=== PATIENT | female | born 1975 | race African-American/Black ===

== ENCOUNTER 2017-06-15 08:59 | Inpatient (IN) | payer OTHER ==
[2017-06-15 09:38] VITALS: BMI 30.7
--- NOTE | 2017-06-15 10:50 | HP ---
CIWA Score - CIWA Score Nausea/Vomitin Muscle Tremors: 3 Anxiety: 3 Agitation: 3 Paroxysmal Sweats: 3 Orientation: 0-Oriented Tacttile Disturbances: 1-Very Mild Itch/Numbness Auditory Disturbances: 0-None Visual Disturbances: 0-None Headache: 2-Mild CIWA-Ar Total Score: 18 Admission [facility] Chief Complaint: alcohol withdrawal sx Allergies/Adverse Reactions: Allergies Allergy/AdvReac Type Severity Reaction Status Date / Time escitalopram oxalate Allergy Mild Swelling Verified 06/15/17 10:25 [From Lexapro] veal Allergy Mild Nausea Uncoded 06/15/17 10:25 History of Present Illness: 41 yo f with h/o chronic alcoholism with alcoholwithdrawl sx requesting inpatient detoxification, crack cocaine, nicotine and mairjuana dependence, occasional opioid percocet use for pain. PMHX obiesity, sciatica, no h/o siezures, no DTS, no SI at this time. Exam Limitations: No Limitations - Ebola screening Have you traveled outside of the country in the last 21 days: No (N) Have you had contact with anyone from an Ebola affected area: No Have you been sick,other than usual withdrawal symptoms: No Do you have a fever: No - Review of Systems Constitutional: Chills, Diaphoresis, Night Sweats, Changes in sleep, Unintentional Wgt. Loss EENT: reports: No Symptoms Reported Respiratory: reports: No Symptoms reported Cardiac: reports: No Symptoms Reported GI: reports: Diarrhea, Nausea, Poor Appetite, Poor Fluid Intake, Vomiting, Indigestion, Abdominal cramping : reports: No Symptoms Reported Musculoskeletal: reports: Joint Pain (bialteral knee pain) Integumentary: reports: Flushing, Sweating Neuro: reports: Headache, Numbness, Tingling, Tremors Endocrine: reports: Increased Thirst Hematology: reports: No Symptoms Reported Psychiatric: reports: Judgement Intact, Mood/Affect Appropiate, Orientated x3, Anxious, Depressed Other Systems: Reviewed and Negative Patient History - Patient Medical History Hx Anemia: No Hx Asthma: No Hx Chronic Obstructive Pulmonary Disease (COPD): No Hx Cancer: No Hx Cardiac Disorders: No Hx Congestive Heart Failure: No Hx Hypertension: No Hx Hypercholesterolemia: No Hx Pacemaker: No HX Cerebrovascular Accident: No Hx Seizures: No Hx Dementia: No Hx Diabetes: No Hx Gastrointestinal Disorders: No Hx Liver Disease: No Hx Genitourinary Disorders: No Hx Sexually Transmitted Disorders: No Hx Renal Disease (ESRD): No Hx Thyroid Disease: No Hx Human Immunodeficiency Virus (HIV): No (NEGATIVE IN 12/2011) Hx Hepatitis C: No Hx Depression: No Hx Suicide Attempt: No Hx Bipolar Disorder: Yes Hx Schizophrenia: Yes - Patient Surgical History Past Surgical History: Yes Hx Neurologic Surgery: No Hx Cataract Extraction: No Hx Cardiac Surgery: No Hx Lung Surgery: No Hx Breast Surgery: No Hx Breast Biopsy: No Hx Abdominal Surgery: No Hx Appendectomy: No Hx Cholecystectomy: No Hx Genitourinary Surgery: No Hx Section: No Hx Orthopedic Surgery: Yes (Lt lower Jaw 2009) Hx Hysterectomy: No Anesthesia Reaction: No - PPD History Previous Implant?: No Implanted On Prior [facility] Admission?: No PPD to be Administered?: Yes - Reproductive History Patient is a Female of Child Bearing Age (11 -55 yrs old): Yes Last Menstrual Period: 12/12/14 Patient : No - Smoking Cessation Smoking history: Current every day smoker Have you smoked in the past 12 months: Yes Aproximately how many cigarettes per day: 30 Hx Chewing Tobacco Use: No Initiated information on smoking cessation: Yes 'Breaking Loose' booklet given: 06/15/17 - Substance & Tx. History Hx Alcohol Use: Yes Hx Substance Use: Yes Substance Use Type: Alcohol, Cocaine, Marijuana, Opiates, Prescribed Hx Substance Use Treatment: Yes (st. [facility]) - Substances Abused Alcohol Route: Oral Frequency: Daily Amount used: 1/2 PINT VODKA , 6PACK BEER Age of first use: 15 Date of Last Use: 06/14/17 Cocaine Route: Inhalation Frequency: No use in 30 days Amount used: $700/MONTH Age of first use: 18 Date of Last Use: 03/15/17 Marijuana/Hashish Route: Smoking Frequency: 1-2 times per week Amount used: 1BAG Age of first use: 16 Date of Last Use: 06/14/17 Family Disease History - Family Disease History Family Disease History: CA: Father (LUNG), Other: Mother (KIDNEY FAILURE) Admission Physical Exam [facility] - Vital Signs Vital Signs: Vital Signs - 24 hr 06/15/17 09:32 Temperature 97.2 F L Pulse Rate 78 Respiratory 18 Rate Blood Pressure 154/97 - Physical General Appearance: Yes: Nourished, Appropriately Dressed, Disheveled, Mild Distress, Alcohol on Breath, Obese, Tremorous, Irritable, Sweating, Anxious HEENTM: Yes: Within Normal Limits, EOMI, Hearing grossly Normal, Normal ENT Inspection, Normocephalic, Normal Voice, BROCK, Pharynx Normal Respiratory: Yes: Within Normal Limits, Chest Non-Tender, Lungs Clear, Normal Breath Sounds, No Respiratory Distress, No Accessory Muscle Use Neck: Yes: Within Normal Limits, No masses,lesions,Nodules, Supple, Trachea in good position Breast: Yes: Breast Exam Deferred Cardiology: Yes: Within Normal Limits, Regular Rhythm, Regular Rate, S1, S2 Abdominal: Yes: Normal Bowel Sounds, Non Tender, Soft, Increased Bowel Sounds, Protuberent, Distended, Tenderness (diffuse no rebound or guarding noted) Genitourinary: Yes: Within Normal Limits Back: Yes: Within Normal Limits, Normal Inspection Musculoskeletal: Yes: full range of Motion, Gait Steady, Pelvis Stable, Joint Stiffness (knees) Extremities: Yes: Normal Capillary Refill, Normal Range of Motion, Non-Tender, Tremors Neurological: Yes: 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 II-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 NML intact, Fully Oriented, Alert, Motor Strength 5/5, Normal Response, Depressed Affect Integumentary: Yes: Normal Color, Warm, Diaphoresis, Moist Lymphatic: Yes: Within Normal Limits - Addiitonal Findings: withdrawal sx present - Diagnostic (1) Alcohol dependence with uncomplicated withdrawal Current Visit: Yes Status: Acute (2) Dehydration Current Visit: Yes Status: Acute (3) Obesity Current Visit: Yes Status: Acute (4) Nicotine dependence Current Visit: Yes Status: Acute (5) Bipolar 1 disorder, mixed, moderate Current Visit: No Status: Chronic (6) Cocaine dependence Current Visit: No Status: Chronic (7) 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
[2017-06-15] MEDS ORDERED: NICOTINE POLACRILEX 4 MG GUM BUC PRN (10:56)
[2017-06-15] MEDS ORDERED: MENTHOL/PHENOL 1 EACH UD MM PRN (10:56)
[2017-06-15] MEDS ORDERED: MAG HYDROX/AL HYDROX/SIMETH 30 ML UNIT-DOSE CUP PO PRN (10:56)
[2017-06-15] MEDS ORDERED: MAGNESIUM HYDROX 2400MG/30ML ORAL SUSPENSION 30 ML CUP PO PRN (10:56)
[2017-06-15] MEDS ORDERED: MAGNESIUM CITRATE 300 ML BOTTLE PO PRN (10:56)
[2017-06-15] MEDS ORDERED: LOPERAMIDE HCL 2 MG CAPSULE PO PRN (10:56)
[2017-06-15] MEDS ORDERED: ACETAMINOPHEN 325 MG TABLET (FP) PO PRN (10:56)
[2017-06-15] MEDS ORDERED: guaiFENesin/D-METHORPHAN HB 10 ML UNIT-DOSE CUPS PO PRN (10:56)
[2017-06-15] MEDS ORDERED: P-EPHED 60MG/TRIPROLIDI 2.5MG TABLET PO PRN (10:56)
[2017-06-15] MEDS ORDERED: hydrOXYzine PAMOATE 50 MG CAPSULE (FP) PO PRN (10:56)
[2017-06-15] MEDS ORDERED: chlordiazePOXIDE HCL 25 MG CAPSULE PO PRN (10:56)
[2017-06-15] MEDS ORDERED: chlordiazePOXIDE HCL 25 MG CAPSULE PO ONE (11:15)
[2017-06-15] MEDS ORDERED: FLU VACCINE QUAD 60 MCG/0.5 ML (MDV 17-18) IM ONE (12:00)
[2017-06-15] MEDS: IBUPROFEN 400 MG TABLET (FP) PO PRN ×2 (12:53→19:03)
[2017-06-15] MEDS: NICOTINE 21 MG/24 HOURS TOPICAL PATCH TD SCH (12:55)
[2017-06-15] MEDS: LIDOCAINE 5% TOPICAL PATCH TP SCH (12:57)
[2017-06-15] MEDS ORDERED: ONDANSETRON *ODT* 4 MG TABLET SL PRN (13:40)
--- NOTE | 2017-06-15 15:30 | CONSULT ---
[facility] Psychiatric Consult - Data Date of interview: 06/15/17 Admission source: [facility] Identifying data: This is 41 years old AA female , mother of five, [facility] withhistory of Schizophrenia, Bipolar I Disorder, history of psychiatric hospitalizations, intoxicated with: Alcohol, Cannabis, Cocaine and Nicotine Substance Abuse History: - Smoking Cessation. Smoking history: Current every day smoker. Have you smoked in the past 12 months: Yes. Aproximately how many cigarettes per day: 30. Hx Chewing Tobacco Use: No. Initiated information on smoking cessation: Yes. 'Breaking Loose' booklet given: 06/15/17. - Substance & Tx. History. Hx Alcohol Use: Yes. Hx Substance Use: Yes. Substance Use Type : Alcohol, Cocaine, Marijuana, Opiates, Prescribed. Hx Substance Use Treatment : Yes (st[facility]). - Substances Abused. Alcohol. Route: Oral. Frequency: Daily. Amount used: 1/2 PINT VODKA , 6PACK BEER. Age of first use: 15. Date of Last Use: 06/14/17. Cocaine. Route: Inhalation. Frequency: No use in 30 days. Amount used: $700/MONTH. Age of first use: 18. Date of Last Use: 05/31. Marijuana/Hashish. Route: Smoking. Frequency: 1-2 times per week. Amount used: 1BAG. Age of first use: 16. Date of Last Use: 06/14/17 Medical History: Obesity Psychiatric History: Patient reports to carry Bipolar I Disorder, wity history of multiple psychiatric admissions , most recent one on 2015 at [facility] due to auditory hgallucinations. Patient reports taking prior to admission: Haldol 10mg po bid. Depakote 500mg po bid. Cogentin 0,5mg p[o bid. Effexor XR 150mg poqd. Trazodone 199mg po qhs Physical/Sexual Abuse/Trauma History: Unclear Additional Comment: Haldol 10mg po bid. Depakote 500mg po bid. Cogentin 0,5mg p[o bid. Effexor XR 150mg poqd. Trazodone 199mg po qhs Mental Status Exam - Mental Status Exam Alert and Oriented to: Person Cognitive Function: Fair Patient Appearance: Unkempt Mood: Suspicious Affect: Constricted Patient Behavior: Guarded Speech Pattern: Appropriate Voice Loudness: Normal Thought Process: Circumstantial Thought Disorder: Being Controlled Hallucinations: Denies Suicidal Ideation: Denies Homicidal Ideation: Denies Insight/Judgement: Fair Sleep: Difficulty falling asleep Appetite: Weight gain Muscle strength/Tone: Mild Hypotonicity Gait/Station: Shuffling Additional Comments: Haldol 10mg po bid. Depakote 500mg po bid. Cogentin 0, 5mg p[o bid. Effexor XR 150mg poqd. Trazodone 199mg po qhs Psychiatric Findings - Problem List ([place] 1, 2,3) (1) Alcohol dependence with uncomplicated withdrawal Current Visit: Yes Status: Acute (2) Nicotine dependence Current Visit: Yes Status: Acute (3) Alcohol dependence Current Visit: No Status: Chronic (4) Bipolar 1 disorder, mixed, moderate Current Visit: No Status: Chronic (5) Cocaine dependence Current Visit: No Status: Chronic - Initial Treatment Plan Initial Treatment Plan: Haldol 10mg po bid. Depakote 500mg po bid. Cogentin 0, 5mg p[o bid. Effexor XR 150mg poqd. Trazodone 199mg po qhs
[2017-06-15] MEDS: chlordiazePOXIDE HCL 25 MG CAPSULE PO SCH ×2 (17:12→22:43)
[2017-06-15 18:16] LABS: URINE APPEARANCE CLEAR; URINE BILIRUBIN NEGATIVE (NEGATIVE); URINE BLOOD NEGATIVE (NEGATIVE); URINE COLOR YELLOW; URINE GLUCOSE (UA) NEGATIVE (NEGATIVE); URINE KETONE NEGATIVE (NEGATIVE); URINE LEUK ESTERASE NEGATIVE (NEGATIVE); URINE NITRITE NEGATIVE (NEGATIVE); URINE PROTEIN NEGATIVE (NEGATIVE); URINE UROBILINOGEN NEGATIVE mg/dL (0.2-1.0)
[2017-06-15] MEDS ORDERED: cloNIDine HCL 0.1 MG TABLET PO ONE (22:32)
--- NOTE | 2017-06-15 22:35 | PN ---
[facility] Progress Note Note: Last Vital Signs Temp Pulse Resp BP Pulse Ox 98.6 F 86 18 160/103 06/15/17 21:58 06/15/17 21:58 06/15/17 21:58 06/15/17 21:58 patient no apparent distress. STAT order Clonidine 0.1mg Once Increase Fluids Continue to monitor Continue detox
[2017-06-15] MEDS: DIVALPROEX SODIUM 500 MG TABLET E.C. PO SCH (22:42)
[2017-06-15] MEDS: HALOPERIDOL 5 MG TABLET (FP) PO SCH (22:42)
[2017-06-15] MEDS: BENZTROPINE MESYLATE 1 MG TABLET (FP) PO SCH (22:43)
[2017-06-15] MEDS: THIAMINE HCL 100 MG TABLET (FP) PO SCH (22:43)
[2017-06-15] MEDS: traZODone HCL 100 MG TABLET (FP) PO SCH (22:43)
[2017-06-15] MEDS: LIDOCAINE PATCH REMOVAL MC SCH (23:01)
[2017-06-16] MEDS: chlordiazePOXIDE HCL 25 MG CAPSULE PO SCH ×4 (07:50→22:29)
[2017-06-16 10:02] LABS: HEMOGLOBIN 12.1 GM/dL (10.7-15.3); MCH 30.2 pg (25.7-33.7); MCHC 31.9 g/dl (32.0-36.0); MEAN CELL VOLUME 94.4 fl (80-96); MEAN PLT VOLUME 8.3 fl (7.5-11.1); PLATELET COUNT 259 K/MM3 (134-434); RBC 4.03 M/mm3 (3.60-5.2); RDW 14.3 % (11.6-15.6); WHITE BLOOD COUNT 6.7 K/mm3 (4.0-10.0)
[2017-06-16 10:17] LABS: CHLORIDE 105 mmol/L (98-107); SODIUM 140 mmol/L (136-145)
--- NOTE | 2017-06-16 10:18 | EKG ---
Test Reason : Blood Pressure : / mmHG Vent. Rate : 089 BPM Atrial Rate : 089 BPM P-R Int : 194 ms QRS Dur : 080 ms QT Int : 376 ms P-R-T Axes : 059 049 054 degrees QTc Int : 457 ms NORMAL SINUS RHYTHM NORMAL ECG NO PREVIOUS ECGS AVAILABLE Confirmed by TONA GRAY MD ([id number]) on 06/16/2017 10:17:48 AM Referred By: Confirmed By:TONA GRAY MD
[2017-06-16 10:33] LABS: ALBUMIN 4.2 g/dl (3.4-5.0); ALK PHOS 77 U/L (45-117); ANION GAP 8 (8-16); BILIRUBIN,TOTAL 0.5 mg/dL (0.2-1.0); BLOOD UREA NITROGEN 12 mg/dL (7-18); CALCIUM 8.6 mg/dL (8.5-10.1); CO2 27 mmol/L (21-32); CREATININE 0.6 mg/dL (0.55-1.02); GLUCOSE,RANDOM 103 mg/dL (74-106); SGOT/AST 40 U/L (15-37); SGPT/ALT 46 U/L (12-78); TOT PROT 8.2 g/dl (6.4-8.2)
[2017-06-16] MEDS: DIVALPROEX SODIUM 500 MG TABLET E.C. PO SCH ×2 (10:51→22:28)
[2017-06-16] MEDS: VENLAFAXINE HCL 150 MG E.R. CAPSULE PO SCH (10:51)
[2017-06-16] MEDS: BENZTROPINE MESYLATE 1 MG TABLET (FP) PO SCH ×2 (10:52→22:28)
[2017-06-16] MEDS: NICOTINE 21 MG/24 HOURS TOPICAL PATCH TD SCH (10:52)
[2017-06-16] MEDS: LIDOCAINE 5% TOPICAL PATCH TP SCH (10:52)
[2017-06-16] MEDS: HALOPERIDOL 5 MG TABLET (FP) PO SCH ×2 (10:52→22:28)
[2017-06-16] MEDS: PRENATAL VITAMINS W/ FOLIC ACID TABLET (FP) PO SCH (10:53)
--- NOTE | 2017-06-16 14:12 | PN ---
S CIWA - CIWA Score Nausea/Vomitin Muscle Tremors: 3 Anxiety: 3 Agitation: 2 Paroxysmal Sweats: 1-Minimal Palms Moist Orientation: 0-Oriented Tacttile Disturbances: 1-Very Mild Itch/Numbness Auditory Disturbances: 1-Very Mild Visual Disturbances: 0-None Headache: 2-Mild CIWA-Ar Total Score: 16 BHS Progress Note (SOAP) Subjective: ALERT,IRRITABLE,ANXIOUS,INTERRUPTED SLEEP,TREMOR Objective: 06/16/17 14:11 Vital Signs Temperature 97.9 F 06/16/17 10:16 Pulse Rate 84 06/16/17 10:16 Respiratory Rate 18 06/16/17 10:16 Blood Pressure 148/94 06/16/17 10:16 O2 Sat by Pulse Oximetry (%) EKG NSR,NORMAL ECG Laboratory Last Values WBC 6.7 K/mm3 (4.0-10.0) 06/16/17 06:00 RBC 4.03 M/mm3 (3.60-5.2) 06/16/17 06:00 Hgb 12.1 GM/dL (10.7-15.3) 06/16/17 06:00 Hct 38.0 % (32.4-45.2) 06/16/17 06:00 MCV 94.4 fl (80-96) 06/16/17 06:00 MCH 30.2 pg (25.7-33.7) 06/16/17 06:00 MCHC 31.9 g/dl (32.0-36.0) L 06/16/17 06:00 RDW 14.3 % (11.6-15.6) 06/16/17 06:00 Plt Count 259 K/MM3 (134-434) 06/16/17 06:00 MPV 8.3 fl (7.5-11.1) 06/16/17 06:00 Sodium 140 mmol/L (136-145) 06/16/17 06:00 Potassium 4.0 mmol/L (3.5-5.1) 06/16/17 06:00 Chloride 105 mmol/L (98-107) 06/16/17 06:00 Carbon Dioxide 27 mmol/L (21-32) 06/16/17 06:00 Anion Gap 8 (8-16) 06/16/17 06:00 BUN 12 mg/dL (7-18) 06/16/17 06:00 Creatinine 0.6 mg/dL (0.55-1.02) 06/16/17 06:00 Creat Clearance w eGFR > 60 (>60) 06/16/17 06:00 Random Glucose 103 mg/dL (74-106) 06/16/17 06:00 Calcium 8.6 mg/dL (8.5-10.1) 06/16/17 06:00 Total Bilirubin 0.5 mg/dL (0.2-1.0) D 06/16/17 06:00 AST 40 U/L (15-37) H 06/16/17 06:00 ALT 46 U/L (12-78) 06/16/17 06:00 Alkaline Phosphatase 77 U/L (45-117) 06/16/17 06:00 Total Protein 8.2 g/dl (6.4-8.2) 06/16/17 06:00 Albumin 4.2 g/dl (3.4-5.0) 06/16/17 06:00 Urine Color Yellow 06/15/17 17:00 Urine Appearance Clear 06/15/17 17:00 Urine pH 8.0 (5.0-8.0) 06/15/17 17:00 Ur Specific [place] 1.025 (1.001-1.035) 06/15/17 17:00 Urine Protein Negative (NEGATIVE) 06/15/17 17:00 Urine Glucose (UA) Negative (NEGATIVE) 06/15/17 17:00 Urine Ketones Negative (NEGATIVE) 06/15/17 17:00 Urine Blood Negative (NEGATIVE) 06/15/17 17:00 Urine Nitrite Negative (NEGATIVE) 06/15/17 17:00 Urine Bilirubin Negative (NEGATIVE) 06/15/17 17:00 Urine Urobilinogen Negative mg/dL (0.2-1.0) 06/15/17 17:00 Ur Leukocyte Esterase Negative (NEGATIVE) 06/15/17 17:00 Valproic Acid 9.732 ug/ml (50-100) L 06/16/17 06:00 RPR Titer Nonreactive (NONREACTIVE) 06/16/17 06:00 HIV 1&2 Antibody Screen Negative 06/16/17 06:00 HIV P24 Antigen Negative 06/16/17 06:00 Assessment: 06/16/17 14:12 WITHDRAWAL SYMPTOM Plan: CONTINUE DETOX
[2017-06-16] MEDS ORDERED: cloNIDine HCL 0.1 MG TABLET PO ONE (15:23)
[2017-06-16] MEDS: THIAMINE HCL 100 MG TABLET (FP) PO SCH (22:28)
[2017-06-16] MEDS: traZODone HCL 100 MG TABLET (FP) PO SCH (22:28)
[2017-06-16] MEDS: LIDOCAINE PATCH REMOVAL MC SCH (23:52)
[2017-06-17] MEDS: chlordiazePOXIDE HCL 25 MG CAPSULE PO SCH ×2 (07:04→10:36)
[2017-06-17] MEDS: HALOPERIDOL 5 MG TABLET (FP) PO SCH ×2 (10:36→22:44)
[2017-06-17] MEDS: NICOTINE 21 MG/24 HOURS TOPICAL PATCH TD SCH (10:37)
[2017-06-17] MEDS: VENLAFAXINE HCL 150 MG E.R. CAPSULE PO SCH (10:37)
[2017-06-17] MEDS: PRENATAL VITAMINS W/ FOLIC ACID TABLET (FP) PO SCH (10:37)
[2017-06-17] MEDS: DIVALPROEX SODIUM 500 MG TABLET E.C. PO SCH ×2 (10:37→22:44)
[2017-06-17] MEDS: BENZTROPINE MESYLATE 1 MG TABLET (FP) PO SCH ×2 (10:38→22:44)
[2017-06-17] MEDS: LIDOCAINE 5% TOPICAL PATCH TP SCH (10:38)
--- NOTE | 2017-06-17 13:04 | PN ---
S CIWA - CIWA Score Nausea/Vomitin Muscle Tremors: 3 Anxiety: 2 Agitation: 2 Paroxysmal Sweats: 1-Minimal Palms Moist Orientation: 0-Oriented Tacttile Disturbances: 1-Very Mild Itch/Numbness Auditory Disturbances: 1-Very Mild Visual Disturbances: 1-Very Mild Sensitivity Headache: 2-Mild CIWA-Ar Total Score: 16 [facility] Progress Note (SOAP) Subjective: ALERT,IRRITABLE,ANXIOUS,INTERRUPTED SLEEP,TREMOR Objective: 06/17/17 13:02 Vital Signs Temperature 97.7 F 06/17/17 10:14 Pulse Rate 91 H 06/17/17 10:14 Respiratory Rate 18 06/17/17 10:14 Blood Pressure 156/99 06/17/17 10:14 O2 Sat by Pulse Oximetry (%) Laboratory Last Values WBC 6.7 K/mm3 (4.0-10.0) 06/16/17 06:00 RBC 4.03 M/mm3 (3.60-5.2) 06/16/17 06:00 Hgb 12.1 GM/dL (10.7-15.3) 06/16/17 06:00 Hct 38.0 % (32.4-45.2) 06/16/17 06:00 MCV 94.4 fl (80-96) 06/16/17 06:00 MCH 30.2 pg (25.7-33.7) 06/16/17 06:00 MCHC 31.9 g/dl (32.0-36.0) L 06/16/17 06:00 RDW 14.3 % (11.6-15.6) 06/16/17 06:00 Plt Count 259 K/MM3 (134-434) 06/16/17 06:00 MPV 8.3 fl (7.5-11.1) 06/16/17 06:00 Sodium 140 mmol/L (136-145) 06/16/17 06:00 Potassium 4.0 mmol/L (3.5-5.1) 06/16/17 06:00 Chloride 105 mmol/L (98-107) 06/16/17 06:00 Carbon Dioxide 27 mmol/L (21-32) 06/16/17 06:00 Anion Gap 8 (8-16) 06/16/17 06:00 BUN 12 mg/dL (7-18) 06/16/17 06:00 Creatinine 0.6 mg/dL (0.55-1.02) 06/16/17 06:00 Creat Clearance w eGFR > 60 (>60) 06/16/17 06:00 Random Glucose 103 mg/dL (74-106) 06/16/17 06:00 Calcium 8.6 mg/dL (8.5-10.1) 06/16/17 06:00 Total Bilirubin 0.5 mg/dL (0.2-1.0) D 06/16/17 06:00 AST 40 U/L (15-37) H 06/16/17 06:00 ALT 46 U/L (12-78) 06/16/17 06:00 Alkaline Phosphatase 77 U/L (45-117) 06/16/17 06:00 Total Protein 8.2 g/dl (6.4-8.2) 06/16/17 06:00 Albumin 4.2 g/dl (3.4-5.0) 06/16/17 06:00 Urine Color Yellow 06/15/17 17:00 Urine Appearance Clear 06/15/17 17:00 Urine pH 8.0 (5.0-8.0) 06/15/17 17:00 Ur Specific [place] 1.025 (1.001-1.035) 06/15/17 17:00 Urine Protein Negative (NEGATIVE) 06/15/17 17:00 Urine Glucose (UA) Negative (NEGATIVE) 06/15/17 17:00 Urine Ketones Negative (NEGATIVE) 06/15/17 17:00 Urine Blood Negative (NEGATIVE) 06/15/17 17:00 Urine Nitrite Negative (NEGATIVE) 06/15/17 17:00 Urine Bilirubin Negative (NEGATIVE) 06/15/17 17:00 Urine Urobilinogen Negative mg/dL (0.2-1.0) 06/15/17 17:00 Ur Leukocyte Esterase Negative (NEGATIVE) 06/15/17 17:00 Valproic Acid 9.732 ug/ml (50-100) L 06/16/17 06:00 RPR Titer Nonreactive (NONREACTIVE) 06/16/17 06:00 HIV 1&2 Antibody Screen Negative 06/16/17 06:00 HIV P24 Antigen Negative 06/16/17 06:00 Assessment: 06/17/17 13:03 WITHDRAWAL SYMPTOM Plan: CONTINUE DETOX
[2017-06-17] MEDS: chlordiazePOXIDE 5 MG CAPSULE PO SCH ×2 (17:29→22:44)
[2017-06-17] MEDS: traZODone HCL 100 MG TABLET (FP) PO SCH (22:43)
[2017-06-17] MEDS: THIAMINE HCL 100 MG TABLET (FP) PO SCH (22:43)
[2017-06-17] MEDS: LIDOCAINE PATCH REMOVAL MC SCH (23:06)
[2017-06-18] MEDS: chlordiazePOXIDE 5 MG CAPSULE PO SCH ×2 (07:00→10:36)
[2017-06-18] MEDS: VENLAFAXINE HCL 150 MG E.R. CAPSULE PO SCH (10:36)
[2017-06-18] MEDS: PRENATAL VITAMINS W/ FOLIC ACID TABLET (FP) PO SCH (10:36)
[2017-06-18] MEDS: DIVALPROEX SODIUM 500 MG TABLET E.C. PO SCH ×2 (10:36→22:34)
[2017-06-18] MEDS: HALOPERIDOL 5 MG TABLET (FP) PO SCH ×2 (10:36→23:00)
[2017-06-18] MEDS: BENZTROPINE MESYLATE 1 MG TABLET (FP) PO SCH ×2 (10:37→22:34)
[2017-06-18] MEDS: LIDOCAINE 5% TOPICAL PATCH TP SCH (10:37)
[2017-06-18] MEDS: NICOTINE 21 MG/24 HOURS TOPICAL PATCH TD SCH (10:37)
--- NOTE | 2017-06-18 11:12 | PN ---
S Progress Note (SOAP) Subjective: tremor sweat anxiety Objective: 06/18/17 11:12 Vital Signs Temperature 96.6 F L 06/18/17 10:18 Pulse Rate 90 06/18/17 10:18 Respiratory Rate 20 06/18/17 10:18 Blood Pressure 133/94 06/18/17 10:18 O2 Sat by Pulse Oximetry (%) Laboratory Last Values WBC 6.7 K/mm3 (4.0-10.0) 06/16/17 06:00 RBC 4.03 M/mm3 (3.60-5.2) 06/16/17 06:00 Hgb 12.1 GM/dL (10.7-15.3) 06/16/17 06:00 Hct 38.0 % (32.4-45.2) 06/16/17 06:00 MCV 94.4 fl (80-96) 06/16/17 06:00 MCH 30.2 pg (25.7-33.7) 06/16/17 06:00 MCHC 31.9 g/dl (32.0-36.0) L 06/16/17 06:00 RDW 14.3 % (11.6-15.6) 06/16/17 06:00 Plt Count 259 K/MM3 (134-434) 06/16/17 06:00 MPV 8.3 fl (7.5-11.1) 06/16/17 06:00 Sodium 140 mmol/L (136-145) 06/16/17 06:00 Potassium 4.0 mmol/L (3.5-5.1) 06/16/17 06:00 Chloride 105 mmol/L (98-107) 06/16/17 06:00 Carbon Dioxide 27 mmol/L (21-32) 06/16/17 06:00 Anion Gap 8 (8-16) 06/16/17 06:00 BUN 12 mg/dL (7-18) 06/16/17 06:00 Creatinine 0.6 mg/dL (0.55-1.02) 06/16/17 06:00 Creat Clearance w eGFR > 60 (>60) 06/16/17 06:00 Random Glucose 103 mg/dL (74-106) 06/16/17 06:00 Calcium 8.6 mg/dL (8.5-10.1) 06/16/17 06:00 Total Bilirubin 0.5 mg/dL (0.2-1.0) D 06/16/17 06:00 AST 40 U/L (15-37) H 06/16/17 06:00 ALT 46 U/L (12-78) 06/16/17 06:00 Alkaline Phosphatase 77 U/L (45-117) 06/16/17 06:00 Total Protein 8.2 g/dl (6.4-8.2) 06/16/17 06:00 Albumin 4.2 g/dl (3.4-5.0) 06/16/17 06:00 Urine Color Yellow 06/15/17 17:00 Urine Appearance Clear 06/15/17 17:00 Urine pH 8.0 (5.0-8.0) 06/15/17 17:00 Ur Specific [place] 1.025 (1.001-1.035) 06/15/17 17:00 Urine Protein Negative (NEGATIVE) 06/15/17 17:00 Urine Glucose (UA) Negative (NEGATIVE) 06/15/17 17:00 Urine Ketones Negative (NEGATIVE) 06/15/17 17:00 Urine Blood Negative (NEGATIVE) 06/15/17 17:00 Urine Nitrite Negative (NEGATIVE) 06/15/17 17:00 Urine Bilirubin Negative (NEGATIVE) 06/15/17 17:00 Urine Urobilinogen Negative mg/dL (0.2-1.0) 06/15/17 17:00 Ur Leukocyte Esterase Negative (NEGATIVE) 06/15/17 17:00 Valproic Acid 9.732 ug/ml (50-100) L 06/16/17 06:00 RPR Titer Nonreactive (NONREACTIVE) 06/16/17 06:00 HIV 1&2 Antibody Screen Negative 06/16/17 06:00 HIV P24 Antigen Negative 06/16/17 06:00 lab noted Assessment: 06/18/17 11:12 withdrawal sx Plan: continue detox
[2017-06-18] MEDS: IBUPROFEN 400 MG TABLET (FP) PO PRN (13:25)
[2017-06-18] MEDS: chlordiazePOXIDE HCL 10 MG CAPSULE PO SCH ×2 (18:03→22:34)
[2017-06-18] MEDS: traZODone HCL 100 MG TABLET (FP) PO SCH (22:34)
[2017-06-18] MEDS: THIAMINE HCL 100 MG TABLET (FP) PO SCH (22:34)
[2017-06-18] MEDS: LIDOCAINE PATCH REMOVAL MC SCH (23:01)
[2017-06-19] MEDS: chlordiazePOXIDE HCL 10 MG CAPSULE PO SCH (07:15)
--- NOTE | 2017-06-19 08:29 | DS ---
[facility] Detox Discharge Summary Admission Date: 06/15/17 Discharge Date: 06/19/17 - History Present History: Alcohol Dependence - Physical Exam Results Vital Signs: Vital Signs Temperature 97.3 F L 06/19/17 06:27 Pulse Rate 76 06/19/17 06:27 Respiratory Rate 18 06/19/17 06:27 Blood Pressure 112/60 06/19/17 06:27 O2 Sat by Pulse Oximetry (%) Pertinent Admission Physical Exam Findings: withdrawal sx Vital Signs Temperature 97.3 F L 06/19/17 06:27 Pulse Rate 76 06/19/17 06:27 Respiratory Rate 18 06/19/17 06:27 Blood Pressure 112/60 06/19/17 06:27 O2 Sat by Pulse Oximetry (%) Laboratory Last Values WBC 6.7 K/mm3 (4.0-10.0) 06/16/17 06:00 RBC 4.03 M/mm3 (3.60-5.2) 06/16/17 06:00 Hgb 12.1 GM/dL (10.7-15.3) 06/16/17 06:00 Hct 38.0 % (32.4-45.2) 06/16/17 06:00 MCV 94.4 fl (80-96) 06/16/17 06:00 MCH 30.2 pg (25.7-33.7) 06/16/17 06:00 MCHC 31.9 g/dl (32.0-36.0) L 06/16/17 06:00 RDW 14.3 % (11.6-15.6) 06/16/17 06:00 Plt Count 259 K/MM3 (134-434) 06/16/17 06:00 MPV 8.3 fl (7.5-11.1) 06/16/17 06:00 Sodium 140 mmol/L (136-145) 06/16/17 06:00 Potassium 4.0 mmol/L (3.5-5.1) 06/16/17 06:00 Chloride 105 mmol/L (98-107) 06/16/17 06:00 Carbon Dioxide 27 mmol/L (21-32) 06/16/17 06:00 Anion Gap 8 (8-16) 06/16/17 06:00 BUN 12 mg/dL (7-18) 06/16/17 06:00 Creatinine 0.6 mg/dL (0.55-1.02) 06/16/17 06:00 Creat Clearance w eGFR > 60 (>60) 06/16/17 06:00 Random Glucose 103 mg/dL (74-106) 06/16/17 06:00 Calcium 8.6 mg/dL (8.5-10.1) 06/16/17 06:00 Total Bilirubin 0.5 mg/dL (0.2-1.0) D 06/16/17 06:00 AST 40 U/L (15-37) H 06/16/17 06:00 ALT 46 U/L (12-78) 06/16/17 06:00 Alkaline Phosphatase 77 U/L (45-117) 06/16/17 06:00 Total Protein 8.2 g/dl (6.4-8.2) 06/16/17 06:00 Albumin 4.2 g/dl (3.4-5.0) 06/16/17 06:00 Urine Color Yellow 06/15/17 17:00 Urine Appearance Clear 06/15/17 17:00 Urine pH 8.0 (5.0-8.0) 06/15/17 17:00 Ur Specific [place] 1.025 (1.001-1.035) 06/15/17 17:00 Urine Protein Negative (NEGATIVE) 06/15/17 17:00 Urine Glucose (UA) Negative (NEGATIVE) 06/15/17 17:00 Urine Ketones Negative (NEGATIVE) 06/15/17 17:00 Urine Blood Negative (NEGATIVE) 06/15/17 17:00 Urine Nitrite Negative (NEGATIVE) 06/15/17 17:00 Urine Bilirubin Negative (NEGATIVE) 06/15/17 17:00 Urine Urobilinogen Negative mg/dL (0.2-1.0) 06/15/17 17:00 Ur Leukocyte Esterase Negative (NEGATIVE) 06/15/17 17:00 Valproic Acid 9.732 ug/ml (50-100) L 06/16/17 06:00 RPR Titer Nonreactive (NONREACTIVE) 06/16/17 06:00 HIV 1&2 Antibody Screen Negative 06/16/17 06:00 HIV P24 Antigen Negative 06/16/17 06:00 lab noted - Treatment Hospital Course: Detox Protocol Followed, Detoxed Safely, Responded well, Discharged Condition Good, Rehab Referral Accepted Patient has Accepted a Rehab Referral to: as per counselor [place] arranged - Medication Discharge Medications: Ambulatory Orders Trazodone HCl [Desyrel] 100 mg PO HS 02/09/12 Hydroxyzine Pamoate [Vistaril -] 25 mg PO QID 12/16/15 Citalopram Hydrobromide [Celexa -] 20 mg PO DAILY #30 tablet 01/06/16 Divalproex [Depakote -] 500 mg PO BID #60 tablet.ec 01/06/16 Haloperidol [Haldol -] 10 mg PO BID #60 tablet 01/06/16 Trazodone HCl [Desyrel -] 100 mg PO HS #30 tablet 01/06/16 Benztropine Mesylate [Cogentin -] 0.5 mg PO BID #60 tablet 06/15/17 Divalproex [Depakote -] 500 mg PO BID #60 tablet.ec 06/15/17 Haloperidol [Haldol -] 10 mg PO BID #60 tablet 06/15/17 Trazodone HCl [Desyrel -] 100 mg PO HS #30 tablet 06/15/17 Venlafaxine HCl ER [Effexor Xr -] 150 mg PO DAILY #30 cap.er.24h 06/15/17 - Diagnosis (1) Alcohol dependence with uncomplicated withdrawal Current Visit: Yes Status: Acute (2) Bipolar 1 disorder, mixed, moderate Current Visit: Yes Status: Suspected - AMA Did Patient Leave Against Medical Advice: No
[2017-06-19 10:14] VITALS: BP 137/86; PULSE 102; TEMP 98.1
== END 2017-06-19 08:50 | disposition home or self-care (01) | DRG 897 ==
LOC: YASAS 08:59 → Y6N 11:13
PROVIDERS: ADMIT Internal Medicine; ATTEND Internal Medicine
PROC: HZ2ZZZZ Detoxification Services for Substance Abuse Treatment (ICD-10-PCS; principal; 2017-06-15)
DX: F10.230 Alcohol dependence with withdrawal, uncomplicated (principal); F14.20 Cocaine dependence, uncomplicated; F31.30 Bipolar disorder, current episode depressed, mild or moderate severity, unspecified; F17.210 Nicotine dependence, cigarettes, uncomplicated; E86.0 Dehydration; E66.9 Obesity, unspecified; Z68.30 Body mass index [BMI] 30.0-30.9, adult; Z91.018 Allergy to other foods; Z88.8 Allergy status to other drugs, medicaments and biological substances
CPT/HCPCS: 36415; 71045-TC-FY; 80053; 80164; 81003; 85027; 86593; 87389; 93005; 93010; J0735

== ENCOUNTER 2017-08-18 14:33 | Inpatient (IN) | payer OTHER ==
[2017-08-18] MEDS ORDERED: P-EPHED 60MG/TRIPROLIDI 2.5MG TABLET PO PRN (15:50)
[2017-08-18] MEDS ORDERED: MAGNESIUM CITRATE 300 ML BOTTLE PO PRN (15:50)
[2017-08-18] MEDS ORDERED: MENTHOL/PHENOL 1 EACH UD MM PRN (15:50)
[2017-08-18] MEDS ORDERED: MAG HYDROX/AL HYDROX/SIMETH 30 ML UNIT-DOSE CUP PO PRN (15:50)
[2017-08-18] MEDS ORDERED: LOPERAMIDE HCL 2 MG CAPSULE PO PRN (15:50)
[2017-08-18] MEDS ORDERED: IBUPROFEN 400 MG TABLET (FP) PO PRN (15:50)
[2017-08-18] MEDS ORDERED: hydrOXYzine PAMOATE 50 MG CAPSULE (FP) PO PRN (15:50)
[2017-08-18] MEDS ORDERED: ACETAMINOPHEN 325 MG TABLET (FP) PO PRN (15:50)
[2017-08-18] MEDS ORDERED: MAGNESIUM HYDROX 2400MG/30ML ORAL SUSPENSION 30 ML CUP PO PRN (15:50)
[2017-08-18] MEDS ORDERED: guaiFENesin/D-METHORPHAN HB 10 ML UNIT-DOSE CUPS PO PRN (15:50)
--- NOTE | 2017-08-18 15:50 | HP ---
[facility] Re[facility] Assess/Revision - Admission History Admitted to Rehab from: [facility] Date of Admission to Rehab: 08/19/17 - Vital signs Vital Signs: Vital Signs Period Temp Pulse Resp BP Sys/Shelley Pulse Ox Last 24 Hr 97.8 F 96 18 114/77 - Findings Detox History & Physical reviewed: Yes Concur with findings: Yes Comments/Additional Findings: FOR REHAB PROTOCOL Inpatient Rehab Admission - Initial Determination Are CD services needed?: Yes Free of communicable disease: Yes Not in need of hospitalization: Yes - Rehab Admission Criteria Previous failed treatment: Yes Poor recovery environment: Yes Comorbidities: Yes Lacks judgement: No Patient is meeting Inpatient Rehab admission criteria:: Yes
[2017-08-18] MEDS: DIVALPROEX SODIUM 500 MG TABLET E.C. PO SCH (21:16)
[2017-08-18] MEDS: THIAMINE HCL 100 MG TABLET (FP) PO SCH (21:16)
[2017-08-18] MEDS: traZODone HCL 100 MG TABLET (FP) PO SCH (21:16)
[2017-08-18] MEDS ORDERED: MELATONIN 5 MG TABLETS PO PRN (22:00)
[2017-08-19] MEDS ORDERED: PT OWN MED DRAWER 7, Y5N ONE (08:49)
[2017-08-19] MEDS: CITALOPRAM HYDROBROMIDE 20 MG TABLET (FP) PO SCH (10:13)
[2017-08-19] MEDS: PRENATAL VITAMINS W/ FOLIC ACID TABLET (FP) PO SCH (10:13)
[2017-08-19] MEDS: VENLAFAXINE HCL 150 MG E.R. CAPSULE PO SCH (10:13)
[2017-08-19] MEDS: DIVALPROEX SODIUM 500 MG TABLET E.C. PO SCH ×2 (10:13→21:53)
[2017-08-19] MEDS: BENZTROPINE MESYLATE 1 MG TABLET (FP) PO SCH (10:15)
[2017-08-19] MEDS: HALOPERIDOL 5 MG TABLET (FP) PO PRN (12:14)
[2017-08-19] MEDS: THIAMINE HCL 100 MG TABLET (FP) PO SCH (21:54)
[2017-08-19] MEDS: traZODone HCL 100 MG TABLET (FP) PO SCH (21:54)
[2017-08-20] MEDS: VENLAFAXINE HCL 150 MG E.R. CAPSULE PO SCH (09:28)
[2017-08-20] MEDS: HALOPERIDOL 5 MG TABLET (FP) PO PRN ×2 (09:28→21:13)
[2017-08-20] MEDS: CITALOPRAM HYDROBROMIDE 20 MG TABLET (FP) PO SCH (09:28)
[2017-08-20] MEDS: DIVALPROEX SODIUM 500 MG TABLET E.C. PO SCH ×2 (09:28→21:12)
[2017-08-20] MEDS: BENZTROPINE MESYLATE 1 MG TABLET (FP) PO SCH (09:28)
[2017-08-20] MEDS: PRENATAL VITAMINS W/ FOLIC ACID TABLET (FP) PO SCH (09:28)
[2017-08-20] MEDS: THIAMINE HCL 100 MG TABLET (FP) PO SCH (21:12)
[2017-08-20] MEDS: traZODone HCL 100 MG TABLET (FP) PO SCH (21:12)
[2017-08-21] MEDS ORDERED: PT OWN MED DRAWER 7, Y5N ONE (08:02)
[2017-08-21] MEDS: DIVALPROEX SODIUM 500 MG TABLET E.C. PO SCH ×2 (09:55→21:08)
[2017-08-21] MEDS: CITALOPRAM HYDROBROMIDE 20 MG TABLET (FP) PO SCH (09:55)
[2017-08-21] MEDS: PRENATAL VITAMINS W/ FOLIC ACID TABLET (FP) PO SCH (09:55)
[2017-08-21] MEDS: VENLAFAXINE HCL 150 MG E.R. CAPSULE PO SCH (09:55)
[2017-08-21] MEDS: BENZTROPINE MESYLATE 1 MG TABLET (FP) PO SCH (09:55)
[2017-08-21] MEDS: traZODone HCL 100 MG TABLET (FP) PO SCH (21:08)
[2017-08-21] MEDS: THIAMINE HCL 100 MG TABLET (FP) PO SCH (21:08)
[2017-08-21] MEDS: HALOPERIDOL 5 MG TABLET (FP) PO PRN (21:09)
[2017-08-22] MEDS ORDERED: PT OWN MED DRAWER 7, Y5N ONE ×2 (09:01→09:06)
[2017-08-22] MEDS: VENLAFAXINE HCL 150 MG E.R. CAPSULE PO SCH (10:13)
[2017-08-22] MEDS: DIVALPROEX SODIUM 500 MG TABLET E.C. PO SCH ×2 (10:14→21:14)
[2017-08-22] MEDS: PRENATAL VITAMINS W/ FOLIC ACID TABLET (FP) PO SCH (10:14)
[2017-08-22] MEDS: CITALOPRAM HYDROBROMIDE 20 MG TABLET (FP) PO SCH (10:14)
[2017-08-22] MEDS: BENZTROPINE MESYLATE 1 MG TABLET (FP) PO SCH (10:14)
[2017-08-22] MEDS: HALOPERIDOL 5 MG TABLET (FP) PO PRN ×2 (10:19→21:15)
[2017-08-22] MEDS ORDERED: NICOTINE POLACRILEX 2 MG GUM BUC PRN (12:03)
[2017-08-22] MEDS: NICOTINE 21 MG/24 HOURS TOPICAL PATCH TD SCH (14:38)
[2017-08-22] MEDS: THIAMINE HCL 100 MG TABLET (FP) PO SCH (21:14)
[2017-08-22] MEDS: traZODone HCL 100 MG TABLET (FP) PO SCH (21:14)
[2017-08-23] MEDS: DIVALPROEX SODIUM 500 MG TABLET E.C. PO SCH ×2 (10:02→21:16)
[2017-08-23] MEDS: PRENATAL VITAMINS W/ FOLIC ACID TABLET (FP) PO SCH (10:02)
[2017-08-23] MEDS: CITALOPRAM HYDROBROMIDE 20 MG TABLET (FP) PO SCH (10:02)
[2017-08-23] MEDS: VENLAFAXINE HCL 150 MG E.R. CAPSULE PO SCH (10:02)
[2017-08-23] MEDS: BENZTROPINE MESYLATE 1 MG TABLET (FP) PO SCH (10:03)
[2017-08-23] MEDS: NICOTINE 21 MG/24 HOURS TOPICAL PATCH TD SCH (10:03)
[2017-08-23] MEDS: traZODone HCL 100 MG TABLET (FP) PO SCH (21:15)
[2017-08-23] MEDS: THIAMINE HCL 100 MG TABLET (FP) PO SCH (21:16)
[2017-08-24 08:04] VITALS: BP 111/76; PULSE 69; TEMP 97.6
[2017-08-24] MEDS: CITALOPRAM HYDROBROMIDE 20 MG TABLET (FP) PO SCH (10:42)
[2017-08-24] MEDS: PRENATAL VITAMINS W/ FOLIC ACID TABLET (FP) PO SCH (10:42)
[2017-08-24] MEDS: BENZTROPINE MESYLATE 1 MG TABLET (FP) PO SCH (10:42)
[2017-08-24] MEDS: DIVALPROEX SODIUM 500 MG TABLET E.C. PO SCH ×2 (10:42→21:18)
[2017-08-24] MEDS: VENLAFAXINE HCL 150 MG E.R. CAPSULE PO SCH (10:42)
[2017-08-24] MEDS: NICOTINE 21 MG/24 HOURS TOPICAL PATCH TD SCH ×2 (10:43→10:52)
[2017-08-24] MEDS: THIAMINE HCL 100 MG TABLET (FP) PO SCH (21:18)
[2017-08-24] MEDS: HALOPERIDOL 5 MG TABLET (FP) PO PRN (21:18)
[2017-08-24] MEDS: traZODone HCL 100 MG TABLET (FP) PO SCH (21:18)
[2017-08-25] MEDS: BENZTROPINE MESYLATE 1 MG TABLET (FP) PO SCH (11:06)
[2017-08-25] MEDS: CITALOPRAM HYDROBROMIDE 20 MG TABLET (FP) PO SCH (11:06)
[2017-08-25] MEDS: VENLAFAXINE HCL 150 MG E.R. CAPSULE PO SCH (11:06)
[2017-08-25] MEDS: PRENATAL VITAMINS W/ FOLIC ACID TABLET (FP) PO SCH (11:06)
[2017-08-25] MEDS: NICOTINE 21 MG/24 HOURS TOPICAL PATCH TD SCH (11:06)
[2017-08-25] MEDS: DIVALPROEX SODIUM 500 MG TABLET E.C. PO SCH (11:06)
--- NOTE | 2017-08-25 17:57 | PN ---
[facility] Progress Note Note: Psychiatry Attending's note : Called by nurse to enter an order for discharge. Came to the corona. Patient is NO LONGER on the unit.Reportedly escorted off. By security personnel.Prior to arrival of psychiatrist. Situation : Patient is accused of stealing money from peer # [id number]. According to staff, Ms Kuhn refused to be searched. Instead, the patient requested to leave the program. Scripts for medications (depakote,haldol,cogentin,trazodone,celexa) : Already sent to pharmacy on 08/16/[address] Bowden. Patient not seen.Refer to staff's notes for details. Discussed with the nurse's preload supervisor on duty. NO indication for clinical psychiatric intervention.
== END 2017-08-25 17:00 | disposition left against medical advice (07) | DRG 895 ==
LOC: YASAS 14:33 → Y3E 14:34
PROVIDERS: ADMIT Psychiatry & Neurology Psychiatry; ATTEND Psychiatry & Neurology Psychiatry
PROC: HZ42ZZZ Group Counseling for Substance Abuse Treatment, Cognitive-Behavioral (ICD-10-PCS; principal; 2017-08-18)
DX: F10.20 Alcohol dependence, uncomplicated (principal); F14.20 Cocaine dependence, uncomplicated; F91.8 Other conduct disorders; F17.210 Nicotine dependence, cigarettes, uncomplicated; F25.9 Schizoaffective disorder, unspecified; M54.30 Sciatica, unspecified side; Z91.5 Personal history of self-harm
CPT/HCPCS: 36415; 80164